=== PATIENT | male | born 1955 | race Caucasian/White ===

== ENCOUNTER → 2018-07-16 | Day surgery (SDC) | payer OTHER ==
[2018-07-14 11:20] LABS: ANION GAP 10.4 mmol/L (8-16); BLOOD UREA NITROGEN 18 mg/dL (7-26); BUN/CREATININE RATIO 17 (6-25); CALCIUM 10.8 mg/dL (8.4-10.2); CARBON DIOXIDE 29 mmol/L (22-29); CHLORIDE 101 mmol/L (98-107); CREATININE, SERUM 1.09 mg/dL (0.72-1.25); EST GLOMERULAR FILTRATION RATE > 60 ML/MIN (60-); GLUCOSE 103 mg/dL (74-118); POTASSIUM 4.4 mmol/L (3.5-5.1); SODIUM 136 mmol/L (136-145)
[~2018-07-16] MED LIST: ALBUTEROL SULF 0.083% NEB SOLN 3 ML NEB ONE; ASPIR 8181 MG PO; BUPIVACAINE 0.5%/EPI 30 ML SDV INJ ONE; CALCIUM 500+D1 EACH PO; CEFAZOLIN SOD 2 GM/D5W 50ML 50 ML IV ONE; CINNAMON; DEXAMETHASONE SOD PHOS INJ 4 MG/ML VIAL ONE; ECOTRIN325 MG; FENTANYL CITRATE/PF 100MCG/2 ML INJ ONE; FISH OIL OMEGA1 EACH; GLIMEPRIDE; KETOROLAC TROMETHAMINE 30 MG/ML VIAL ONE; LIDOCAINE HCL 2% LOCAL INJ 5 ML SDV VIAL INJ ONE; LISINOPRIL-HCT1 EAC1 PO; LOVASTATIN10 MG; METFORMIN HCL500 MG; METOCLOPRAMIDE HCL 10 MG/2ML VIAL ONE; MIDAZOLAM HCL 2 MG/2 ML VIAL ONE; MULTI-VITAMIN1 EACH PO; OMEPRAZOLE40 MG; ONDANSETRON HCL INJ 2MG/ML 2ML 2 MG/ML VIAL ONE; OSTEO BI-FLEX1 EAC1; PROPOFOL IV EMULSION 10 MG/ML 20 ML VIAL ONE; SEVOFLURANE INHAL SOLN 250 ML PEN BTL ONE; TRADJENTA5 MG PO; TRICOR145 MG PO; ZESTRIL20 MG PO
--- OUTSIDE RECORDS SUMMARY | 2018-07-16 07:29 | XMS REPORT | Encounter Summary ---
Author Organization Unknown Address [address] [place] [address] Phone [phone] Care Team Providers Care [employer] Iam Consultant Name Role Phone Dr. Zaheer Pedro 3 [phone] Len Soria MD 3 [phone] Calivn Fiore MD 111 [phone] Wilder Montesinos MD 114 [phone] Hillary Chiquita 210 [phone] Reason for Visit Quality BMI DEPRESSION FALL; Bilateral leg problem; hyperlipidemia; Right knee pain/problem; hypertension; AWV Annual Wellness Visit Male (VFP); diabetes Instructions 1. Adult health examination 2. Advance directive discussed with patient advance care planning: care instructions 3. Depression screening 4. At risk for falls preventing falls: care instructions 5. Body mass index 30+ - obesity learning about healthy weight body mass index: care instructions 6. Obesity 7. Type 2 diabetes mellitus with multiple complications metformin ER 500 mg tablet,extended release 24 hr Tradjenta 5 mg tablet glucose, fingerstick, blood 8. Benign hypertensive heart disease without congestive heart failure lisinopril 20 mg-hydrochlorothiazide 25 mg tablet 9. Atherosclerosis of coronary artery without angina pectoris 10. Mixed hyperlipidemia fenofibrate micronized 134 mg capsule lovastatin 10 mg tablet 11. Gastroesophageal reflux disease omeprazole 40 mg capsule,delayed release 12. Osteoarthritis of left knee joint orthopedic referral 13. Varicose veins of lower extremity vein specialist referral 14. Anemia fecal occult blood, stool Discussion Note f/u in 3 mths , will do fasting labs in 3mths Plan of Care Patient Instructions It was good to see you in the office today for your Medicare Annual Wellness Visit. You have been provided some information on healthy nutrition, including a diet rich in fruits and vegetables, minimizing simple carbohydrates, salt, and saturated fats. I want to encourage regular cardiovascular exercise such as walking at least 30 minutes daily, 5 times per week. Please remember to schedule any preventive health measures that we talked about today. You have also been provided education on fall prevention and community- based lifestyle interventions to help reduce health risks and promote healthy living in your Annual Wellness folder. Screening Recommendations 1. Vaccines Pneumococcal: discussed today and information sent with patient in their Annual Wellness health folder Influenza: discussed today and information sent with patient in their Annual Wellness health folder Shingles: discussed today and information sent with patient in their Annual Wellness health folder Tetanus: discussed today and information sent with patient in their Annual Wellness health folder 2. Prostate Screening: discussed today and information sent with patient in their Annual Wellness health folder 3. Colorectal cancer Screening Colonoscopy: discussed today and information sent with patient in their Annual Wellness health folder Fecal Occult Blood: discussed today and information sent with patient in their Annual Wellness health folder 4. Bone Mass Measurement: discussed today 5. Eye Exam Screening: discussed today 6. Cholesterol Screening: discussed today 7. Diabetes Screening: discussed today Reminders Provider Appointments Est Patient 09/08/2018 9:30AM Len Soria MD Lab Glucose, Fingerstick, Blood 06/09/2018 [facility] ([facility]) [facility] Fecal Occult Blood, Stool 06/09/2018 [facility] Laboratory Referral Orthopedic Referral 06/09/2018 Abdelrahman Garcia MD Vein Specialist Referral 06/09/2018 Procedures None recorded. Surgeries None recorded. Imaging None recorded. Medications Name Start Date aspirin 81 mg tablet,delayed release Take 1 tablet 3 times a week by oral route. fenofibrate micronized 134 mg capsule Take 1 capsule every day by oral route. fluticasone propionate 50 mcg/actuation nasal spray,suspension [place] 1 spray twice a day by intranasal route for 90 days. lisinopril 20 mg-hydrochlorothiazide 25 mg tablet Take 1 tablet every day by oral route. lovastatin 10 mg tablet Take 1 tablet every day by oral route. metformin ER 500 mg tablet,extended release 24 hr Take 2 tablets twice a day by oral route. omeprazole 40 mg capsule,delayed release Take 1 capsule every day by oral route. OneTouch Delica Lancets 33 gauge OneTouch Verio strips USE TO TEST BLOOD GLUCOSE ONCE DAILY Osteo Bi-Flex 1 TABLET DAILY Tradjenta 5 mg tablet Take 1 tablet every day by oral route. Medications Administered None recorded. Vitals Height Weight BMI Blood Pressure 5 ft 8 in 208 lbs 31.6 kg/m2 126/74 mm[Hg] Lab Results Date Name Specimen Result Interpretation Description Value Range Status Address 06/09/2018 Glucose, Fingerstick, Blood Blood Glucose: mg/dl 139 [facility] ([facility]) Hobby: [id number] Allergies Code Code System Name Reaction Severity Status Onset NKDA Problems Name Status Onset Date Source Osteopenia Active 03/20/2016 Coronary Artery Stenosis Active 06/15/2016 Mixed Hyperlipidemia Active 02/07/2017 Benign Essential Hypertension Active 02/07/2017 Gastroesophageal Reflux Disease Active 02/07/2017 [place]'s Esophagus Active 02/07/2017 Diabetes with Other Complications Active 03/13/2017 Pulmonary Hypertension Active 04/15/2017 Atherosclerosis of Coronary Artery without Angina Pectoris Active 09/22/2017 Iron Deficiency Anemia Active 11/10/2017 Gastritis Active 12/16/2017 Procedures Date Name Performed by 02/07/2018 Esophagogastroduodenoscopy Information not available 11/21/2017 Egd Information not available 11/21/2017 Colonoscopy & Polypectomy Information not available 09/08/2013 Colonoscopy Information not available Vaccine List Vaccine Type influenza, injectable, quadrivalent 12/12/2016 influenza, unspecified formulation 01/03/20180.5 mL pneumococcal polysaccharide PPV23 03/19/2014 Td(adult) unspecified formulation 04/01/2005 Tdap 06/12/20170.5 mL zoster 09/12/20160.65 mL zoster subunit 0.5 mL Social History Smoking Status Never Smoker Past Encounters 06/09/2018 Adult Health Examination; Advance Directive Discussed with Patient; Depression Screening; At Risk for Falls; Body Mass Index 30+ - Obesity; Obesity; Type 2 Diabetes Mellitus with Multiple Complications; Benign Hypertensive Heart Disease without Congestive Heart Failure; Atherosclerosis of Coronary Artery without Angina Pectoris; Mixed Hyperlipidemia; Gastroesophageal Reflux Disease; Osteoarthritis of Left Knee Joint; Varicose Veins of Lower Extremity; Anemia Len Soria MD: [address], [address], [place] [address], Ph. History of Present Illness Hypertension Reported By: Patient Mini Cog Reported By: Patient Functional Ability: Personal/Social/ Draw a clock and write in the numbers in the correct place, and set the time to 10 minutes after 11 o'clock was completed correctly? No, 3 word recall: Your nurse or doctor will ask you to remember 3 words. In 5 minutes, they will ask you to repeat them. Patient recalled 2 words Lower Leg Reported By: Patient Hyperlipidemia Reported By: Patient Note:re with mom because he has pain in Rt lower extremity & Lt leg be;ow the knee, , denies any injury ,Also c/o Lt knee feels like catching when he is sitting & trying to extend his Lt knee , goes to the gyum 3 days a week for 1 hr each , walks on treadmil restof pepito days , mows the yard Review of Systems Comprehensive General Adult ROS Reported By: Patient Physical Exam Lower Leg, General Adult Exam (male) Reported By: Patient
[2018-07-16 12:50] VITALS: BP 116/68
--- NOTE | 2018-07-17 18:57 | Operative Report ---
DATE OF PROCEDURE: 07/16/2018 SURGEON: Abdelrahman Garcia MD PREOPERATIVE DIAGNOSES: 1. Right knee medial meniscus tear. 2. Right knee degenerative joint disease of the knee. POSTOPERATIVE DIAGNOSES: 1. Right knee medial meniscus tear. 2. Right knee degenerative joint disease of the knee. OPERATION/PROCEDURE PERFORMED: The patient underwent right knee exam under anesthesia, right knee arthroscopy, right knee partial medial meniscectomy, right knee chondroplasty of patella and trochlea, the medial femoral condyle and tibial plateau, the lateral femoral condyle and lateral tibial plateau. POCKET ASSEMBLER: Leidy Hunter. ANESTHESIA: General endotracheal intubation anesthesia. IV FLUIDS: Per the anesthesia record. BRIEF DISCUSSION OF THE PATIENT'S OPERATIVE PROCEDURE: Mr. Yee was taken to the operating room, placed in supine position on the operating table. Following induction of general anesthesia as well as endotracheal intubation, the patient's right lower extremity was examined under anesthesia. He was found to have a mild effusion within knee the joint, but otherwise ligamentously stable knee. The patient's lower extremity was prepped and draped in standard surgical fashion. A 2-port technique was used to provide this patient arthroscopic evaluation of the knee joint. Examination of the suprapatellar pouch, medial and lateral gutters found no evidence of loose bodies. There was however evidence of chondromalacia of the patella and trochlear surfaces. The scope was advanced into the medial compartment. Examination of the medial compartment demonstrated a torn medial meniscus. There was also chondromalacia of the articulating surfaces. A combination of biting forceps and a motorized shaver used to resect the torn portion of meniscus. Chondroplasties of the medial femoral condyle and medial tibial plateau were performed at this time. The scope was advanced to the intercondylar notch. Anterior cruciate ligament was identified and found to be intact. The scope was then advanced into the lateral compartment and chondromalacia of the articulating surfaces were encountered. Chondroplasties of the lateral femoral condyle and lateral tibial plateau performed at this time. The scope was then advanced in the suprapatellar pouch and chondroplasties of the patella and trochlea were performed. The knee was deflated in sterile normal saline. The portal sites were closed using 4-0 nylon suture. The portal sites were then injected with 0.5% Marcaine with epinephrine. Sterile dressings were applied. The patient was awakened and taken to postanesthesia care in stable condition. MD YANIQUE Thomason/PANKAJ /[id number]
== END | disposition home or self-care (01) ==
LOC: OR 07:25
PROVIDERS: ATTEND Specialist
DX: S83.221A Peripheral tear of medial meniscus, current injury, right knee, initial encounter (principal); E11.9 Type 2 diabetes mellitus without complications; I10 Essential (primary) hypertension; Z83.3 Family history of diabetes mellitus; Z82.49 Family history of ischemic heart disease and other diseases of the circulatory system; Z84.1 Family history of disorders of kidney and ureter; Z82.61 Family history of arthritis; M17.0 Bilateral primary osteoarthritis of knee; K21.9 Gastro-esophageal reflux disease without esophagitis; Z79.84 Long term (current) use of oral hypoglycemic drugs; Z01.810 Encounter for preprocedural cardiovascular examination; Z01.812 Encounter for preprocedural laboratory examination
CPT/HCPCS: 29881; 36415 ×2; 80048; 82948; 93005; J0690; J1100; J1885; J2001; J2250; J2405; J2704; J2765